=== PATIENT | male | born 2000 | race Caucasian/White ===

== ENCOUNTER 2019-09-01 17:08 | Day surgery (SDC) | payer BC ==
[2019-09-01] VITALS (8 sets, daily range): BP systolic 102–130; BP diastolic 55–67; PULSE 63–79; TEMP 98.1–99.9
[~2019-09-01] VITALS: Ht 172.7 cm; Wt 68.0 kg
[2019-09-01 19:12] LABS: BASO # 0.1 (0.0-0.2); BASO % 0.4 % (0.0-2.0); EOS # 0.1 (0.0-0.7); EOS % 0.6 % (0-4.0); GRAN # 11.7 (1.4-6.5); GRAN % 82.1 % (42.2-75.2); HEMATOCRIT 45.4 % (42.0-52.0); HEMOGLOBIN 15.6 g/dl (13.5-18.0); LYMPH # 1.4 (1.2-3.4); LYMPH % 10.1 % (20.0-51.0); MEAN CELL VOLUME 90 fl (80.0-100.0); MEAN CORPUSCULAR HEMOGLOBIN 31 pg (27.0-31.0); MEAN CORPUSCULAR HGB CONC 34 g/dl (33.0-37.0); MONO # 0.9 (0.1-0.6); MONO % 6.4 % (1.7-9.3); PLATELET COUNT 219 K/mm3 (130-400); RED BLOOD COUNT 5.05 M/mm3 (4.20-5.60); REDCELL DISTRIBUTION WIDTH-CV 12.3 % (11.5-14.5)
[2019-09-01 19:27] LABS: CALCIUM 9.7 mg/dL (8.4-10.2); CREATININE, serum 0.76 (0.66-1.25); POTASSIUM 3.8 mmol/L (3.4-5.0)
--- NOTE | 2019-09-01 21:15 | NUR ---
Patient returned to room via bed with surgery RN. Report given. Slight temp 99.2, will continue to monitor. States pain 5/10. Declines pain medication. 3 lap sites noted, bandaids CDI. Fiance' at bedside. Per pt, Dr. Alexandre, pt will stay overnight. Patient and fiance' agreeable to plan. Will continue to monitor.
--- NOTE | 2019-09-01 22:00 | NUR ---
Patient in bed, eating. States pain is tolerable 5/10. Declines pain medication. Will continue to monitor.
[2019-09-02] VITALS: BP 108/55; PULSE 63; TEMP 98.2
--- NOTE | 2019-09-02 | NUR ---
Patient in bed, sleeping. Arouses to voice. States pain is "not noticeable." VS stable. Will continue to monitor.
[2019-09-02 01:00] VITALS: BP 115/44; PULSE 84
[2019-09-02 02:00] VITALS: BP 105/48; PULSE 64; TEMP 98.2
[2019-09-02 05:13] VITALS: BP 111/50; PULSE 75; TEMP 98.6
[2019-09-02 07:42] VITALS: BP 106/47; PULSE 62; TEMP 97.9
--- NOTE | 2019-09-02 11:48 | NUR ---
First visit from the floor inspector. No needs right now.
--- NOTE | 2019-09-02 11:52 | NUR ---
Sports Trainer met with patient and patient's omaira Susan (ph#[phone]) to discuss discharge plan. Patient lives in [place] and is a student at [employer]. Patient reports he is from [place], [place]. Patient sees LAURENCE Salazar for primary care and obtains medications from [facility] with no difficulties. Patient does not use any DME. Patient does not have Advance Directives and is not interested in setting them up at this time. Patient reports he has notified his advisor at [employer] of his hospital stay. SW contacted Pee of [employer] to notify of patient admission. Patient plans to return home upon discharge. No additional concerns.
[2019-09-02 11:58] VITALS: BP 116/44; PULSE 60; TEMP 97.7
--- NOTE | 2019-09-02 12:43 | NUR ---
Pt doing well this morning, denies pain. Assessment completed. Zosyn running to LFA w/o complications. 3 lap mushtaq sites, bandaids, CDI. Asmita at bedside. Discussed POC w/ patient and asmita who verbalize understanding. Awaiting Dr. Alexandre to see pt prior to discharging. No other concerns expressed.
[2019-09-02] MEDS ORDERED: NORCO 325 MG-51 TAB PO (13:00)
--- NOTE | 2019-09-02 15:49 | NUR ---
Pt discharge instructions discussed and reviewed with patient who verbalized understanding. LFA IV dc'd w/ catheter tip intact, no complications. Pt escorted out via ambulatory w/ nursing staff. No other concerns expressed, all questions answered.
== END 2019-09-02 15:30 | disposition home or self-care (01) ==
LOC: SDCO 17:08 → MEDICAL 17:09 → SDCO 09-02 15:30
PROVIDERS: Surgery
DX: K35.80 Unspecified acute appendicitis (principal)
CPT/HCPCS: OP; J1100; J2405; J2543; J2704; J2710; J3010; J7120; Q9967